=== PATIENT | female | born 1980 | race Caucasian/White ===

== ENCOUNTER 2017-08-22 17:16 | Emergency (ER) | payer SELFPAY, OTHER ==
[2017-08-22 18:11] VITALS: BP 139/83; PULSE 71; RESP 16; TEMP 98.1; O2SAT 100
--- NOTE | 2017-08-22 19:36 | ED PDOC ---
HPI: Back Time Seen by Provider: 08/22/17 19:34 Chief Complaint (Nursing): Back Pain Chief Complaint (Provider): Fall History Per: Patient History/Exam Limitations: no limitations Onset/Duration Of Symptoms: Days (x1) Current Symptoms Are (Timing): Still Present Additional Complaint(s): 37 y/o female presents to the emergency department complaining of 1 day of neck and back pain. 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 Given 800 mg Motrin around 2PM by her boss, but notes persistent pain. No LOC or head injury. PMD: Provider TBD Past Medical History Reviewed: Historical Data, Nursing Documentation, Vital Signs Vital Signs: Last Vital Signs Temp 98.1 F 08/22/17 18:09 Pulse 71 08/22/17 18:09 Resp 16 08/22/17 18:09 BP 139/83 08/22/17 18:09 Pulse Ox 100 08/22/17 18:09 - Medical History PMH: No Chronic Diseases Denies: HIV, Chronic Kidney Disease - Family History Family History: States: Unknown Family Hx - Home Medications Home Medications: Ambulatory Orders Medication Instructions Recorded Amoxicillin/Clavulanate [Augmentin 1 tab PO BID #10 tab 02/06/15 875 MG-125 MG] oxyCODONE/Acetaminophen [Percocet 1 tab PO Q4 PRN #20 tab 02/06/15 5/325 mg Tab] Ibuprofen [Motrin] 600 mg PO Q8 PRN #21 tab 08/22/17 diaZEpam [Valium] 5 mg PO Q6 PRN #3 tab 08/22/17 - Allergies Allergies/Adverse Reactions: Allergies Allergy/AdvReac Type Severity Reaction Status Date / Time No Known Allergies Allergy Verified 08/22/17 18:09 Review of Systems ROS Statement: Except As Marked, All Systems Reviewed And Found Negative Musculoskeletal: Positive for: Neck Pain, Back Pain Neurological: Negative for: Headache, Other (LOC) Physical Exam - Reviewed Nursing Documentation Reviewed: Yes Vital Signs Reviewed: Yes - Physical Exam Appears: Positive for: Non-toxic, No Acute Distress Head Exam: Positive for: ATRAUMATIC, NORMAL INSPECTION, NORMOCEPHALIC Skin: Positive for: Normal Color, Warm, Dry Eye Exam: Positive for: EOMI, Normal appearance, PERRL Neck: Positive for: Normal, Supple (with no bony tenderness. + Tenderness to right trapezius) Cardiovascular/Chest: Positive for: Regular Rate, Rhythm Respiratory: Positive for: Normal Breath Sounds. Negative for: Respiratory Distress Back: Positive for: Normal Inspection, Other (left-sided paralumbar tenderness) . Negative for: Vertebral Tenderness Extremity: Positive for: Normal ROM. Negative for: Pedal Edema, Deformity Neurologic/Psych: Positive for: Alert, Oriented. Negative for: Motor/Sensory Deficits - ECG O2 Sat by Pulse Oximetry: 100 (RA) Pulse Ox Interpretation: Normal Medical Decision Making Medical Decision Making: Initial Impression: Fall, Back Pain Upon provider evaluation patient is medically stable, and requires no further treatment in the ED at this time. Patient will be discharged home with Rx for Valium and Motrin. Counseling was provided and all questions were answered regarding diagnosis and need for follow up with PMD. There is agreement to discharge plan. Return if symptoms persist or worsen. Scribe Attestation: Documented by Claritza Duff, acting as a scribe for Liv Ziegler PA-C Provider Scribe Attestation: All medical record entries made by the Scribe were at my direction and personally dictated by me. I have reviewed the chart and agree that the record accurately reflects my personal performance of the history, physical exam, medical decision making, and the department course for this patient. I have also personally directed, reviewed, and agree with the discharge instructions and disposition. Disposition - Clinical Impression Clinical Impression: Fall, Contusion, Low back pain - Patient ED Disposition Is Patient to be Admitted: No Counseled Patient/Family Regarding: Diagnosis, Need For Followup, Rx Given - Disposition Referrals: [facility] [Outside] Disposition: Routine/Home Disposition Time: 19:45 Condition: FAIR Prescriptions: diaZEpam [Valium] 5 mg PO Q6 PRN #3 tab PRN Reason: Muscle Spasm Ibuprofen [Motrin] 600 mg PO Q8 PRN #21 tab PRN Reason: Pain, Moderate (4-7) Instructions: Acute Low Back Pain (GEN), Contusion in Adults (ED) Forms: [employer] ([place]), [facility] School/Work Excuse
[2017-08-22] MEDS ORDERED: Morphine 4 MG/ML VIAL ONE (19:49)
== END 2017-08-22 19:58 | disposition home or self-care (01) ==
LOC: H.ER 17:16
DX: M54.5 Low back pain (principal); W10.9XXA Fall (on) (from) unspecified stairs and steps, initial encounter; Y92.89 Other specified places as the place of occurrence of the external cause

== ENCOUNTER 2017-08-23 17:15 | Emergency (ER) | payer OTHER, SELFPAY ==
[2017-08-23 17:42] VITALS: BP 143/86; PULSE 78; RESP 19; TEMP 97.4; O2SAT 100
--- NOTE | 2017-08-23 18:21 | ED PDOC ---
HPI: Trauma/Fall - HPI Time Seen by Provider: 08/23/17 17:47 Chief Complaint (Nursing): Back Pain History Per: Patient History/Exam Limitations: no limitations Onset/Duration Of Symptoms: Days (2) Additional Complaint(s): Patient is a 37 y/o female presenting to the emergency department for right- sided neck pain, lower back pain, right wrist, hand, and knee pain, and a constant headache that waxes and wanes since yesterday following a fall. Reports slipping and falling over eleven steps at her workplace with questionable head injury. Notes that she was evaluated in the ED yesterday for the pain and no diagnostic testing was done. She was prescribed Motrin and Valium but denies taking the latter. She is requesting x-rays to be done today. Denies loss of consciousness, nausea, vomiting, chest pain, shortness of breath , abdominal pain, or other complaints. PCP: none provided Past Medical History Reviewed: Historical Data, Nursing Documentation, Vital Signs Vital Signs: Last Vital Signs Temp 97.4 F L 08/23/17 17:39 Pulse 78 08/23/17 17:39 Resp 19 08/23/17 17:39 BP 143/86 08/23/17 17:39 Pulse Ox 100 08/23/17 17:39 - Medical History PMH: No Chronic Diseases Denies: HIV, Chronic Kidney Disease - Family History Family History: States: Unknown Family Hx - Social History Current smoker - smoking cessation education provided: No Ex-Smoker (has not smoked in the last 12 months): No Alcohol: None Drugs: Denies - Home Medications Home Medications: Ambulatory Orders Medication Instructions Recorded Amoxicillin/Clavulanate [Augmentin 1 tab PO BID #10 tab 02/06/15 875 MG-125 MG] oxyCODONE/Acetaminophen [Percocet 1 tab PO Q4 PRN #20 tab 02/06/15 5/325 mg Tab] Ibuprofen [Motrin] 600 mg PO Q8 PRN #21 tab 08/22/17 diaZEpam [Valium] 5 mg PO Q6 PRN #3 tab 08/22/17 - Allergies Allergies/Adverse Reactions: Allergies Allergy/AdvReac Type Severity Reaction Status Date / Time No Known Allergies Allergy Verified 08/23/17 17:38 Review of Systems ROS Statement: Except As Marked, All Systems Reviewed And Found Negative Cardiovascular: Negative for: Chest Pain Respiratory: Negative for: Shortness of Breath Gastrointestinal: Negative for: Nausea, Vomiting Musculoskeletal: Positive for: Neck Pain (right sided), Back Pain (lower), Hand Pain (right hand and wrist), Other (right knee) Neurological: Positive for: Headache (constant, waxes and wanes). Negative for : Other (loss of consciousness) Physical Exam - Reviewed Nursing Documentation Reviewed: Yes Vital Signs Reviewed: Yes - Physical Exam Appears: Positive for: Well, Non-toxic, Uncomfortable (mild painful distress) Head Exam: Positive for: ATRAUMATIC, NORMAL INSPECTION, NORMOCEPHALIC Skin: Positive for: Normal Color, Warm, Dry Eye Exam: Positive for: Normal appearance Neck: Positive for: Normal Cardiovascular/Chest: Positive for: Regular Rate, Rhythm. Negative for: Murmur Respiratory: Positive for: Normal Breath Sounds. Negative for: Accessory Muscle Use, Respiratory Distress Gastrointestinal/Abdominal: Positive for: Normal Exam, Soft. Negative for: Tenderness Back: Positive for: Other (Tenderness with spasm to right paracervical spine with no midline tenderness. Tenderness to right lateral ribs and to right thoracic spine.) Extremity: Positive for: Normal ROM. Negative for: Tenderness, Pedal Edema, Deformity, Swelling Neurologic/Psych: Positive for: Alert, Oriented (x3) - ECG O2 Sat by Pulse Oximetry: 100 (RA) Pulse Ox Interpretation: Normal Medical Decision Making Medical Decision Making: Time: 18:14 Initial impression: trauma s/p fall Initial plan: Head CT w/o contrast Tylenol 975 mg PO Flexeril 10 mg PO POC Urine C-spine x-ray L-spine x-ray Right wrist x-ray Reevaluation XR cervical spine: no fracture, as read by PA XR lumbar spine: no fracture, as read by PA XR right wrist: no fracture, no dislocation, as read by PA CT head w/o contrast : FINDINGS: Brain: Unremarkable. No hemorrhage. No significant white matter disease. No edema. Ventricles: Unremarkable. No ventriculomegaly. Bones/joints: Unremarkable. No acute fracture. Soft tissues: Unremarkable. Sinuses: Unremarkable as visualized. No acute sinusitis. Mastoid air cells: Unremarkable as visualized. No mastoid effusion. IMPRESSION: No acute intracranial pathology. Dictated and Authenticated by: Justen Case MD 08/23/2017 8:00 PM Eastern Time ([place] & [place]) ~ Scribe Attestation: Documented by Lisa Jane, acting as a scribe for JOE Morrell. Provider Scribe Attestation: All medical record entries made by the Scribe were at my direction and personally dictated by me. I have reviewed the chart and agree that the record accurately reflects my personal performance of the history, physical exam, medical decision making, and the department course for this patient. I have also personally directed, reviewed, and agree with the discharge instructions and disposition. Disposition - Clinical Impression Clinical Impression: Back pain, Headache, Neck strain, Wrist pain, right - Patient ED Disposition Is Patient to be Admitted: No Counseled Patient/Family Regarding: Studies Performed, Diagnosis, Need For Followup - Disposition Disposition: Routine/Home Disposition Time: 20:15 Condition: STABLE Instructions: Head Injury (ED), Back Pain (ED), Cervical Sprain (ED), Wrist Sprain (ED) Forms: [employer] ([place]), [facility] ED School/Work Excuse
--- NOTE | 2017-08-24 09:58 | CT ---
PROCEDURE: CT HEAD WITHOUT CONTRAST. HISTORY: pain COMPARISON: None available. TECHNIQUE: Axial computed tomography images were obtained through the head/brain without intravenous contrast. Radiation dose: Total exam DLP = 823.6 mGy-cm. This CT exam was performed using one or more of the following dose reduction techniques: Automated exposure control, adjustment of the mA and/or kV according to patient size, and/or use of iterative reconstruction technique. FINDINGS: HEMORRHAGE: No intracranial hemorrhage. BRAIN: No mass effect or edema. No atrophy or chronic microvascular ischemic changes. VENTRICLES: Unremarkable. No hydrocephalus. CALVARIUM: Unremarkable. PARANASAL SINUSES: Unremarkable as visualized. No significant inflammatory changes. MASTOID AIR CELLS: Unremarkable as visualized. No inflammatory changes. OTHER FINDINGS: None. IMPRESSION: No acute intracranial pathology.
--- NOTE | 2017-08-24 11:06 | RAD ---
PROCEDURE: Cervical Spine Radiographs. HISTORY: Pain. COMPARISON: None. FINDINGS: BONES: Alignment maintained. No fracture. Dens Intact. DISC SPACES: Normal. SOFT TISSUES: Normal. No prevertebral soft tissue swelling. OTHER FINDINGS: None. IMPRESSION: Normal cervical spine radiographs
--- NOTE | 2017-08-24 11:07 | RAD ---
PROCEDURE: Right Wrist Radiographs. HISTORY: pain COMPARISON: None. FINDINGS: BONES: Normal. No fracture. JOINTS: Normal. No dislocation. SOFT TISSUES: Normal. OTHER FINDINGS: None. IMPRESSION: Normal right wrist radiographs.
--- NOTE | 2017-08-24 11:07 | RAD ---
PROCEDURE: Radiographs of the Lumbar Spine. HISTORY: pain COMPARISON: No prior. FINDINGS: BONES: Normal alignment. No listhesis. No fracture. DISC SPACES: Unremarkable. OTHER FINDINGS: None. IMPRESSION: Unremarkable radiographs of the lumbar spine.
== END 2017-08-23 20:54 | disposition home or self-care (01) ==
LOC: H.ER 17:15
DX: S09.90XA Unspecified injury of head, initial encounter (principal); S16.1XXA Strain of muscle, fascia and tendon at neck level, initial encounter; W01.0XXA Fall on same level from slipping, tripping and stumbling without subsequent striking against object, initial encounter; Y99.0 Civilian activity done for income or pay